=== PATIENT | female | born 1945 | race Caucasian/White ===

== ENCOUNTER 2020-03-09 11:56 | Emergency (ER) | payer MEDICARE ==
[~2020-03-09] VITALS: Ht 172.7 cm; Wt 68.0 kg
--- NOTE | 2020-03-09 11:59 | NUR ---
AMBULATED TO ER BED 6
--- NOTE | 2020-03-09 12:00 | NUR ---
C/O NOSE BLEED BEGINNNING APPROX. 1115 THIS MORNING. PT IS PINCHING NOSE AT THIS TIME AND TILTING HEAD BACK. INSTRUCTED PT TO PINCH BRIDGE OF NOSE AND LEAN FORWARD AT THIS TIME. PT DENIES PAIN OR INJURY, STATES HER NOSE BEGAN TO BLEED OUT OF NOWHERE. BP 125/90 AT THIS TIME. HR 84. VSS. PT HAS BLOOD SOAKED TOWEL WITH HER. DR. YANES MADE AWARE OF PT CONDITION.
[2020-03-09 12:10] VITALS: BP 147/95
[2020-03-09] MEDS ORDERED: hydrALAZINE 20 MG/ML VIAL IM ONE (12:20)
--- NOTE | 2020-03-09 12:20 | NUR ---
DR. YANES EVALUATING PT AT BEDSIDE
--- NOTE | 2020-03-09 12:20 | NUR ---
RHINO ROCKET INSERTED INTO R NARE AND NOSE CLIP PLACED BY DR. YANES AT BEDSIDE, BLEEDING CONTROLLED AT THIS TIME.
[2020-03-09 12:41] LABS: BASOPHILS # (AUTO) 0.2 K/uL (0.00-0.22); BASOPHILS % (AUTO) 2.7 % (0.0-2.0); EOSINOPHILS # (AUTO) 0.1 K/uL (0-0.4); EOSINOPHILS % (AUTO) 1.4 % (0.0-4.0); HEMATOCRIT 43.9 % (36-48); HEMOGLOBIN 14.5 g/dL (12.0-16.0); LYMPHOCYTES # (AUTO) 2.1 K/uL (2.5-16.5); LYMPHOCYTES % (AUTO) 24.1 % (20.5-51.1); MEAN CORPUSCULAR HEMOGLOBIN 27 pg (27-31); MEAN CORPUSCULAR HGB CONC 33 g/dL (33-37); MEAN CORPUSCULAR VOLUME 82.8 fL (80-94); MONOCYTES # (AUTO) 0.7 K/uL (0.8-1.0); MONOCYTES % (AUTO) 7.6 % (1.7-9.3); NEUTROPHILS # (AUTO) 5.7 K/uL (1.8-7.7); NEUTROPHILS % (AUTO) 64.2 % (42.2-75.2); PLATELET COUNT (AUTO) 246 K/uL (140-450); RED BLOOD CELL COUNT(AUTO) 5.31 MIL/uL (4.20-5.40); RED CELL DISTRIBUTION WIDTH 14.7 % (11.6-13.7); WHITE BLOOD COUNT (AUTO) 8.8 K/uL (4.8-10.8)
--- NOTE | 2020-03-09 12:45 | NUR ---
BLEEDING REMAINS CONTROLLED, PT DENIES PAIN. BP STABLE AT 125/81
--- NOTE | 2020-03-09 13:00 | NUR ---
TALKED WITH PT SON CUCA WITH PT PERMISSION. INFORMED HIM PT WILL CALL WHEN READY FOR A RIDE.
[2020-03-09 13:50] VITALS: BP 112/79
--- NOTE | 2020-03-09 13:58 | NUR ---
Patient discharged with v/s stable. Written and verbal after care instructions given and explained. Patient verbalized understanding. Ambulatory with steady gait. All questions addressed prior to discharge. Advised to follow up with PMD.
== END 2020-03-09 13:58 | disposition home or self-care (01) ==
LOC: MED 11:56
DX: R04.0 Epistaxis (principal); I10 Essential (primary) hypertension; E11.9 Type 2 diabetes mellitus without complications
CPT/HCPCS: 30901; 36415; 85025; 96372; 99284